=== PATIENT | female | born 1935 | race Caucasian/White ===

== ENCOUNTER 2024-10-26 13:10 | Inpatient (IN) | payer MEDICARE, OTHER ==
[~2024-10-26] VITALS: Ht 144.8 cm; Wt 34.5 kg
[2024-10-26 13:46] LABS: MEAN PLATELET VOLUME 8.0 FL (7.4-10.4); RED CELL DISTRIBUTION WIDTH 19.0 % (11.5-14.5)
--- NOTE | 2024-10-26 13:51 | Physician Documentation ---
History of Present Illness ~ Chief Complaint: Vaginal Bleeding Stated Complaint: VAGINAL BLOOD Time Seen by MD: 13:36 Primary Medical Doctor: Hung TOVAR 89-year-old female with a history of dementia who is nonverbal is brought to the emergency department by her caregiver. Her caregiver knows that she was at [facility] within the last couple of days for a stroke rule out. However, she notes that no CT of the head was done. She has noted bilateral facial droop and decreased responsiveness. She then took the patient to a local urgent care earlier today due to vaginal bleeding in his occurred more than once. Patient does have a history of chronic urinary tract infections on Macrobid chronically. They have not noted any chills or fever. Medication Reconciliation Allergies: Coded Allergies: quetiapine (Unverified Allergy, Unknown, DROWSY, 10/26/24) Uncoded Allergies: BANDAIDS (Allergy, Unknown, 10/26/24) Scheduled Amitriptyline Hcl (Amitriptyline Hcl), 1 TAB PO HS, (Reported) Amlodipine Besylate (Amlodipine Besylate), 1 TAB PO DAILY, (Reported) Doxylamine Succinate (Unisom Sleep Aid), 1 TAB PO HS, (Reported) Famotidine (Famotidine), 1 TAB PO BID, (Reported) Ferrous Sulfate* (Ferrous Sulfate*), 1 TAB PO DAILY, (Reported) Levothyroxine Sodium (Levothyroxine Sodium), 1 TAB PO DAILY, (Reported) Losartan Potassium* (Cozaar*), 100 MG PO DAILY, (Reported) Metoprolol Succinate (Metoprolol Succinate), 1 TAB PO BID, (Reported) Nitrofurantoin/Nitrofuran Mac (Nitrofurantoin Griggs-Mcr 100 Mg), 1 CAP PO DAILY, (Reported) Sertraline HCl (Sertraline HCl), 1 TAB PO DAILY, (Reported) Scheduled PRN Lorazepam (Ativan), 0.5 MG PO PRN PRN for for anxiety/agitation, (Reported) Past Medical History Past Medical History: Hypertension Past Surgical History: hysterectomy, tonsillectomy Alcohol Use: Rarely Drug Use: none Lives with: Family Lives In: Home Occupation: retired Review of Systems ROS As stated above in the HPI, otherwise all systems are reviewed and negative. Physical Exam Vital Signs: Temperature: 100.0, Source: Temporal, Heart Rate: 79, Respiratory Rate: 18, BP: 136/51, Pulse Oximetry: 97, Weight: 34.550 Oxygen Flow Rate: 0 Physical Exam General: Alert, no apparent distress. Neck: Full range of motion. Respiratory: Lungs clear, no respiratory distress. Chest: No accessory muscle use. Cardiovascular: Regular rate and rhythm, 3/6 systolic murmur. Gastrointestinal: Soft, nontender, nondistended. Bowels sounds present. : Bloody discharge noted in patient's adult diaper and around her external labia. Pelvic: Vaginal and urethral atrophy. No cervix. No vaginal lesions or blood in vault. Extremities: Normal range of motion, no deformity. Neurologic: Disoriented but conversant, pleasant, cooperative and follows simple commands. Psychiatric: Normal mood and affect. Skin: Normal color, warm and dry. No edema, no ecchymosis. Progress Results/Orders Results/Orders Orders - ANNA DONAHUE RESOLUTION REP Pelvic Set Up (10/26/24 ) Culture Blood (10/26/24 13:37) Ct Head (10/26/24 14:07) Page Hospitalist (10/26/24 15:22) Completed Orders - ANNA DONAHUE RESOLUTION REP Lacticsepsis (10/26/24 13:37) Procalcitonin (10/26/24 13:37) Ct Head (10/26/24 14:07) Ceftriaxone/N6f-Qrondjon 1gm (Rocephin 1 (10/26/24 14:40) Normal Saline 1000ml (Sodium Chloride 10 (10/26/24 14:40) Medications Received in ER Medications (Trade) Dose Ordered Sig/Yandy Route PRN Reason Start Time Stop Time Status Last Admin Dose Admin Ceftriaxone Sodium 50 ml @ 100 mls/hr ONCE ONCE IV 10/26/24 14:40 10/26/24 15:09 DC 10/26/24 14:59 100 MLS/HR Sodium Chloride 1,000 ml @ 1,000 mls/hr ONCE ONCE IV 10/26/24 14:40 10/26/24 15:39 DC 10/26/24 14:58 1,000 MLS/HR Vital Signs 10/26/24 10/26/24 10/26/24 10/26/24 13:13 13:44 13:44 15:35 Temp 100.0 99.9 Pulse 79 76 82 Resp 18 16 15 12 B/P (MAP) 136/51 141/55 (83) 142/57 (85) Pulse Ox 97 93 94 O2 Flow Rate 0 0 0 Laboratory Tests Test 10/26/24 13:30 10/26/24 13:58 10/26/24 14:45 White Blood Count 11.4 H Red Blood Count 2.34 L Hemoglobin 9.3 L Hematocrit 26.8 L Mean Corpuscular Volume 114.7 H Mean Corpuscular Hemoglobin 39.6 H Mean Corpuscular Hemoglobin Concent 34.5 Red Cell Distribution Width 19.0 H Platelet Count 201 Mean Platelet Volume 8.0 Neutrophils (%) (Auto) 85.0 H Lymphocytes (%) (Auto) 8.6 L Monocytes (%) (Auto) 5.0 Eosinophils (%) (Auto) 1.2 Basophils (%) (Auto) 0.2 Neutrophils # (Auto) 9.7 H Lymphocytes # (Auto) 1.0 L Monocytes # (Auto) 0.6 Eosinophils # (Auto) 0.1 Basophils # (Auto) 0.0 CBC Comment Platelet Estimate Normal Red Blood Cell Morphology Perf Polychromasia Few Basophilic Stippling Anisocytosis 2+ Macrocytosis 2+ Tear Drop Cells Few Elliptocytes Few Sodium Level 135 Potassium Level 3.4 L Chloride Level 103 Carbon Dioxide Level 24.2 Anion Gap 8 Blood Urea Nitrogen 16 Creatinine 0.86 Estimated GFR/1.73 m2 62 BUN/Creatinine Ratio 18.6 Glucose Level 112 H Calcium Level 8.1 L Total Bilirubin 1.7 H Aspartate Amino Transf (AST/SGOT) 16 Alanine Aminotransferase (ALT/SGPT) 17 Alkaline Phosphatase 101 C-Reactive Protein 6.58 H Total Protein 6.1 L Albumin 3.1 L Globulin 3.0 Albumin/Globulin Ratio 1.0 L Lipase 9 L Procalcitonin 0.18 Chemistry Comments Lactic Acid Level 1.1 Urine Specimen Description Straight cath Urine Color Yellow Urine Clarity Cloudy Urine pH 6.0 Urine Specific Egan 1.010 Urine Protein Negative Urine Glucose (UA) Negative Urine Ketones Negative Urine Occult Blood Negative Urine Nitrite Negative Urine Bilirubin Negative Urine Urobilinogen 0.2 Urine Leukocyte Esterase Small H Urine RBC 0-2 Urine WBC 5-10 H Urine WBC Clumps Few Urine Squamous Epithelial Cells Few Urine Amorphous Urates 1+ Urine Bacteria 4+ Urine Culture Indicated Indicated Volume Urine Centrifuged 1 ml Urine Comment Low volume EKG/XRAY/CT/US/VASC/MRI CT : Impression [facility] [address] [facility] [address], [place], [facility] [address] CAT SCAN Patient: JIM SERRATO Medical Record: [id number] [facility] : 1935, Age: 89 Sex: Female Location: ER Patient Status: [facility] ER Service Date/Time: 10/26/241406 Ordering Physician: ANNA DONAHUE NP Exam: CT HEAD CT CT HEAD INDICATION: neuro changes EXAM DATE: 10/26/2024 02:03 PM COMPARISON: None RADIATION DOSE: CTDIvol: 42 mGy, DLP: 707 mGy*cm PROCEDURE: CT scans of the head were obtained from the vertex to the skull base. Sagittal and coronal reconstructions were provided. All CT scans at this medical facility are performed using dose modulation techniques as appropriate to a performed exam including the following: Automated exposure control was utilized; adjustment of the MA and/or KV according to patient size; and use of iterative reconstruction technique. FINDINGS: There is sulcal and ventricular prominence. The brain otherwise shows normal morphology and otero-white matter differentiation, without intracranial hemorrhage, extra-axial fluid collection, mass effect or acute large vessel infarct. The basal cisterns are patent. The skull and visible facial bones are intact. The paranasal sinuses, mastoid air cells and middle ear cavities are well-aerated. The soft tissues of the scalp are unremarkable. IMPRESSION: No acute intracranial abnormality. Electronically Signed by:TERRENCE SAVAGE MD Date & Time: 10/26/24 143 Dictated by: TERRENCE SAVAGE MD Dictation date and time: 10/26/241406 Primary Care Provider: NO PRIMARY CARE PROVIDER cc: ANNA DONAHUE NP ~ Medical Decision Making Additional Comment This is an 89-year-old female with a history of dementia and recent mental status changes who was brought to the emergency department by her caregiver and daughter. They report that she has been less responsive than usual. They have also noted with the think is vaginal bleeding and her adult diaper. However, pelvic exam did not show any lesions or blood in the vaginal vault. Cath urine was obtained. The patient does appear to have a urinary tract infection in his running low-grade fevers, she has elevated white blood cell count, and a markedly elevated CRP. No evidence of sepsis. She was hydrated with a L of normal saline, and was treated with ceftriaxone IV for the urinary tract infection in the ER. The patient would be appropriate for admission, in the hospitalist will be consulted to request that they evaluate her for same. Departure Time of Disposition: 15:50 Disposition: 09 ADMITTED INPATIENT Admitted to Inpatient Unit: yes, to hospitalist Impression: Primary Impression: Altered mental status Additional Impression: Urinary tract infection Referrals: NO PRIMARY CARE PROVIDER (PCP) Signature Scribe Signature: no scribe Attestation: The note accurately reflects work and decisions made by me.Anna Borrero NP 10/26/24 13:51 ANNA DONAHUE NP Oct 26, 2024 13:51
[2024-10-26 14:03] LABS: CREATININE 0.86 MG/DL (0.40-0.90); TOTAL CARBON DIOXIDE 24.2 MMOL/L (24-32); eCRCL 25 ML/MIN; eGFR 62 ML/MIN
--- NOTE | 2024-10-26 14:33 | RADIOLOGY REPORT ---
CT CT HEAD INDICATION: neuro changes EXAM DATE: 10/26/2024 02:03 PM COMPARISON: None RADIATION DOSE: CTDIvol: 42 mGy, DLP: 707 mGy*cm PROCEDURE: CT scans of the head were obtained from the vertex to the skull base. Sagittal and coronal reconstructions were provided. All CT scans at this medical facility are performed using dose modulation techniques as appropriate t o a performed exam including the following: Automated exposure control was utilized; adjustment of th e MA and/or KV according to patient size; and use of iterative reconstruction technique. FINDINGS: There is sulcal and ventricular prominence. The brain otherwise shows normal morphology a nd otero-white matter differentiation, without intracranial hemorrhage, extra-axial fluid collection, mass effect or acute large vessel infarct. The basal cisterns are patent. The skull and visible facia l bones are intact. The paranasal sinuses, mastoid air cells and middle ear cavities are well-aerated . The soft tissues of the scalp are unremarkable. IMPRESSION: No acute intracranial abnormality.
[2024-10-26 14:46] LABS: PLATELET ESTIMATE NORMAL
[2024-10-26 14:47] LABS: ELLIPTOCYTES FEW
[2024-10-26] MEDS: normal saline 1000ml 1,000 ML IV ONE (14:58)
[2024-10-26] MEDS: CefTRIAXone/D5W-Rocephin 1gm 50 ML IV ONE (14:59)
[2024-10-26 15:07] LABS: LEUKOCYTE ESTERASE ,URINE SMALL (Neg); NITRITES, URINE NEGATIVE (Neg); OCCULT BLOOD,URINE NEGATIVE (Neg)
[2024-10-26 15:13] LABS: UA COLLECTION TYPE STRAIGHT CATH
[2024-10-26 15:21] LABS: AMORPHOUS URATES 1+; SQUAMOUS EPITHELIAL CELL,UR FEW /LPF (FEW)
[2024-10-26 15:22] LABS: WBC CLUMPS,URINE FEW /HPF (NEGATIVE)
[2024-10-26] MEDS ORDERED: METO-395 PO (15:34)
[2024-10-26] MEDS ORDERED: LORA-268 PO (15:34)
[2024-10-26] MEDS ORDERED: NITR100C11 PO (15:34)
[2024-10-26] MEDS ORDERED: LEVO50TA8 PO (15:34)
[2024-10-26] MEDS ORDERED: AMIT25TA9 PO (15:34)
[2024-10-26] MEDS ORDERED: LOSA-415 PO (15:34)
[2024-10-26] MEDS ORDERED: AMLO5TAB16 PO (15:34)
[2024-10-26] MEDS ORDERED: FERR325T28 PO (15:34)
[2024-10-26] MEDS ORDERED: SERT-433 PO (15:34)
[2024-10-26] MEDS ORDERED: FAMO20TA8 PO (15:34)
[2024-10-26] MEDS ORDERED: DOXY25TA19 PO (15:34)
--- NOTE | 2024-10-26 15:45 | HISTORY AND PHYSICAL ---
History & Physical Providers to CC ~ chief complaint, vaginal discharge History of Present Illness Reason for Admit\Complaint: As above History of Present Illness This is an 89-year-old female with a history of dementia , and additional multiple medical problems including hypertension over treated, DNR status, history of CVA, GERD, hypothyroidism, depression, anemia hemoglobin 9.3, hypoalbuminemia, gait disorder wheelchair-bound, malnutrition BMI 16, presented today to emergency department chief complaint vaginal discharge, probably bloody in character; in addition patient was is brought to the emergency department by her caregiver. Her caregiver knows that she was at [facility] within the last couple of days for a stroke rule out. However, she notes that no CT of the head was done. She has noted bilateral facial droop and decreased responsiveness. She then took the patient to a local urgent care earlier today due to vaginal bleeding in his occurred more than once. Patient does have a history of chronic urinary tract infections on Macrobid chronically. They have not noted any chills or fever. ER she was evaluated by medical provider, was diagnosed with a fever UTI altered level of consciousness, rule out sepsis, and decision was made to admit patient for further evaluation and treatment, no additional complaint or concern. Allergies: Coded Allergies: quetiapine (Unverified Allergy, Unknown, DROWSY, 10/26/24) Uncoded Allergies: BANDAIDS (Allergy, Unknown, 10/26/24) Active prescriptions I reviewed reconciled Home Medications Home Medications Active Reported Unisom Sleep Aid (Doxylamine Succinate) 25 Mg Tablet 1 Tab PO HS 30 Days Ativan (Lorazepam) 0.5 Mg Tablet 0.5 Mg PO PRN PRN Amitriptyline Hcl 25 Mg Tablet 1 Tab PO HS Nitrofurantoin Sampson-Mcr 100 Mg (Nitrofurantoin/Nitrofuran Mac) 100 Mg Capsule 1 Cap PO DAILY Cozaar* (Losartan Potassium) 25 Mg Tablet 100 Mg PO DAILY 30 Days Metoprolol Succinate 25 Mg Tab.sr.24h 1 Tab PO BID Ferrous Sulfate* (Ferrous Sulfate) 325 Mg Tablet 1 Tab PO DAILY Amlodipine Besylate 5 Mg Tablet 1 Tab PO DAILY Sertraline HCl 50 Mg Tablet 1 Tab PO DAILY Famotidine 20 Mg Tablet 1 Tab PO BID Levothyroxine Sodium 50 Mcg Tablet 1 Tab PO DAILY Past Medical History Past Medical History As in HPI Past Surgical History Surgical History Comment As in HPI Past Social History Social History Comment Patient lives in assisted living facility, good social support, deny illicit drug abuse tobacco alcohol use Health Maintenance Health Maintenance Noncontributory ROS ROS Constitutional : Positive for fever , no chills, or weakness. No diaphoresis. Allergic/Immunologic, no lymphadenopathy, no hives, no skin eruptions. Eyes, no recent visual changes, no eye pain, no photophobia. Ears, nose, mouth, throat, no sore throat, no nosebleed, no ear pain. Cardiovascular, no palpitations, skipped beats, chest pain, no peripheral edema, Respiratory, no dyspnea, orthopnea, cough, hemoptysis, chest wall pain. Gastrointestinal, no abdominal pain, nausea, vomiting, constipation or diarrhea. : no dysuria, hematuria, pelvic pain, urethral d/c. Positive for vaginal discharge Endocrine, no polyuria, polydipsia, recent unintentional weight gain or loss. Hematologic/Lymphatic, no petechiae, no enlarged lymph nodes, no bone pain. Integumentary, no rash, no skin lesions, Musculoskeletal, no muscle aches, or pain, no muscle cramps, no recent change in gait Neurological, no dizziness, no headache, no syncope, no paresthesia. Psychiatric, no delusions, visual hallucinations, or hearing hallucinations. ROS - in rest is as in HPI. Exam Vitals: Vital Signs Date Time Temp Pulse Resp B/P (MAP) Pulse Ox O2 Delivery O2 Flow Rate FiO2 10/26/24 15:35 99.9 82 12 142/57 (85) 94 0 Vital signs, stable ,afebrile. Pulse Oximetry reflects adequate oxygenation. BMI is sixteen, weight 34 kg General: well developed, well nourished. Awake , alert, and oriented x4, resting comfortably in the bed, in no acute distress . Intermittently confused Skin: Warm, dry, no pallor, no rash or petechiae. HEENT: Atraumatic, normocephalic, EOMI, anicteric sclera B; pink conjunctiva; PERRLA, normal oropharynx, moist oral and nasal mucosa. Tympanic membrane , nose , throat clear. Neck: Trachea midline. Supple, full range of motion, no JVD, bruit , hepatojugular reflex , lymphadenopathy or masses, or other lesions Cardiac: Regular rhythm, regular rate no murmurs, rubs, or gallops. Normal S1 and S2, no S3 noticed. PMI is normal. Respiratory: Equal breath sounds bilaterally, no tachypnea; lungs clear to auscultation bilaterally, no wheezing ,rub or rales, or crackles. Chest wall is symmetric and without deformity. No signs of trauma. Chest wall is nontender. No signs of respiratory distress. Resonance is normal upon percussion bilaterally. Gastrointestinal: Abdomen symmetric, non-distended, soft, non-tender, normal bowel sounds x4 quadrant, normoactive, no hepatosplenomegaly , no masses , no bruit, no flank pain bilaterally. No voluntary guarding, rebound, or rigidity. No tenderness to percussion. No pulsatile masses. Equal femoral pulses. No Geller's sign or McBurney point tenderness. Back; no CVA tenderness bilaterally, no deformities. Neck and back are without deformity as well. No tenderness noted on palpation of the spinous processes. Spinous processes are midline. Cervical, thoracic, and lumbar paraspinal muscles are not tender and are without spasm. : normal external genitalia, without lesions, swelling, masses or tenderness. Musculoskeletal: Extremities, normal range of motion, non-tender, muscle strength 5/5 x 4. Negative Homans signs bilaterally on lower extremity. Distal pulses full symmetrical, no clubbing, cyanosis , edema. Neurological: Speech is clear, alert, and oriented x 4. Intermittently confused, No motor or sensory deficit, deep tendon reflexes normal, cerebellar intact. Cranial nerves II-XII intact. Psych: Alert and or appropriate, normal affect. Occasionally confused Vascular: Good distal pulses, which are equal x4; capillary refill less than 2 seconds. Lymphatic, no lymphadenopathy. Diagnostic Data Last Recorded Lab Results: 10/26/24 1330 10/26/24 1330 Advance Care Planning Advanced Care plannin - 30 Minutes Additional Plan Assessment Complicated UTI, rule out sepsis Altered level consciousness Hypovolemia Hypokalemia Dementia hypertension, over treated Anemia hemoglobin 9.3 Gait disorder, wheelchair-bound Malnutrition BMI 60 Additional comorbidities, hypoalbuminemia, depression, hypothyroidism, GERD TIA Plan IV antibiotics, fluids keep patient well hydrated euvolemic Replace electrolytes PT evaluation and treatment Nutrition consult I reconciled home medications DVT gastropathy prophylaxis addressed Sepsis Screening Reassessment Date: Oct 26, 2024 Date of Service: Oct 26, 2024 Billing Provider: DHRUV HUDSON MD Common Visit Codes: 36125-VIZOIBIESS INP/OBS CARE(HIGH) Secondary Visit Codes: 64248-NUSYJIGZ CARE PLAN 30 MINUTES DHRUV HUDSON MD Oct 26, 2024 15:45
[2024-10-26] MEDS ORDERED: ondansetron 4mg rapidly disintigrating tab PO PRN (16:25)
[2024-10-26] MEDS ORDERED: HYDROcodone/acetaminophen 5mg/325mg tablet PO PRN (16:25)
[2024-10-26] MEDS ORDERED: magnesium Cl slow-release 64mg tablet PO PRN (16:25)
[2024-10-26] MEDS ORDERED: bisacodyl 10mg suppository rectal RC PRN (16:25)
[2024-10-26] MEDS ORDERED: mag hydrox/Alum hydrox/simeth 30ml oral suspension PO PRN (16:25)
[2024-10-26] MEDS ORDERED: acetaminophen 650mg rectal suppository RC PRN (16:25)
[2024-10-26] MEDS ORDERED: magnesium sulf-water 2g/50mL 50 ML IV PRN (16:25)
[2024-10-26] MEDS ORDERED: magnesium sulf-water 4G/100mL 100 ML IV PRN (16:25)
[2024-10-26] MEDS ORDERED: potassium Cl 20 mEq SR tablet PO PRN (16:25)
[2024-10-26] MEDS ORDERED: ondansetron/PF 4mg/2ml inj IV PRN (16:25)
[2024-10-26] MEDS ORDERED: magnesium hydroxide 30ml (MOM) UD suspension PO PRN (16:25)
[2024-10-26] MEDS ORDERED: potassium Cl 40MEQ/1/2NS 520ml 520 ML IV PRN (16:25)
[2024-10-26 17:18] LABS: APTT 36 SECONDS (22-32); INR 1.2 INR
[2024-10-26 17:30] LABS: PHOSPHORUS 3.1 MG/DL (2.3-4.5); PRO BRAIN NATRIURETIC PEPTIDE 2214.0 PG/ML (0-450)
[2024-10-26] MEDS: potassium Cl 20mEq in NS 1,000 ML IV SCH (17:34)
--- NOTE | 2024-10-26 17:37 | RADIOLOGY REPORT ---
Indication: abdom-pelvic mass , dist MT Technique: CT axial images of the chest, abdomen and pelvis are obtained with intravenous contrast. Coronal and sagittal reformats were obtained. Radiation Dose Information: CTDI volume is 14.2 mGy. Dose-length product is 926 mGy*cm Comparison: None FINDINGS: The trachea is patent. No pneumothorax. Small right and tiny left pleural effusions. Right lower lobe consolidation/atelectasis. Right middle lobe atelectasis. Left lower lobe atelectasis/developing con solidation. Heart normal in size. Aortic atherosclerotic disease. Left thyroid nodule measuring 1.8 cm. No supra clavicular, axillary lymphadenopathy. Adrenal glands, spleen unremarkable in shape. Pancreas unremarkable in shape. Large gallbladder hyper density measuring 5.4 x 3.6 cm. Liver unremarkable in shape. Bilateral renal peripelvic cysts. No hydronephrosis/ nephrolithiasis. Small to moderate hiatal hernia. Small bowel loops are normal in caliber. Bowel wall thickening with surrounding stranding of the rectosigmoid colon. Moderate volume stool thr oughout the colon. No secondary signs for appendicitis. Abdominal aortic atherosclerotic disease. Bladder is partially distended. No free pelvic fluid. No in guinal lymphadenopathy. Old right superior/ inferior pubic rami fractures. Rwwi-cj-vhiyquwz bilateral sacroiliac degenerative joint disease. Bilateral acromiale. Old anterior right rib fractures. Old right femoral head / neck fracture deformi ty. Moderate to severe thoracolumbar degenerative disc disease. Old L4 compression deformity with 30% loss height. Old T12 compression deformity with 90% loss height. Old L1 compression deformity with 30% loss height. IMPRESSION: Bowel wall thickening with surrounding stranding of the rectosigmoid colon. Differential consideratio ns include colitis, inflammatory bowel disease. Large gallbladder hyperdensity measuring 5.4 x 3.6 cm. Recommend MRI abdomen with and without contra st to evaluate for cholelithiasis versus gallbladder mass / neoplasm versus sludge. Small to moderate hiatal hernia. Bilateral pulmonary lower lobe consolidation/atelectasis. Small right and tiny left pleural effusions . Atherosclerotic disease. Other findings as described.
[2024-10-26 19:00] VITALS: RESP 15; O2SAT 94
[2024-10-26 19:10] VITALS: BP 122/59; PULSE 83; RESP 15; TEMP 98; O2SAT 94
[2024-10-26] MEDS: K and/or MAG REPLACEMENT MC SCH (20:00)
[2024-10-26] MEDS: docusate sod 100mg capsule PO SCH (20:00)
[2024-10-26 22:00] VITALS: BP 128/54; PULSE 80; RESP 20; TEMP 98.2; O2SAT 93
[2024-10-27] VITALS (7 sets, daily range): BP systolic 136–164; BP diastolic 56–63; PULSE 80–92; RESP 14–20; TEMP 98.1–98.9; O2SAT 93–97
[2024-10-27 04:53] LABS: MEAN PLATELET VOLUME 7.9 FL (7.4-10.4); RED CELL DISTRIBUTION WIDTH 18.9 % (11.5-14.5)
[2024-10-27 05:18] LABS: CHOL/HDL RATIO 2.3 (0.00-4.99); CREATININE 0.73 MG/DL (0.40-0.90); LDL CHOLESTEROL 51 MG/DL (50-100); TOTAL CARBON DIOXIDE 23.1 MMOL/L (24-32); eCRCL 29 ML/MIN; eGFR 75 ML/MIN
[2024-10-27 07:51] LABS: PLATELET ESTIMATE NORMAL
[2024-10-27] MEDS: CefTRIAXone/D5W-Rocephin 1gm 50 ML IV SCH (08:13)
[2024-10-27] MEDS: potassium Cl 20 mEq SR tablet PO PRN (08:13)
[2024-10-27] MEDS ORDERED: ipratropium/albuterol 3ml nebule NEB PRN (10:05)
--- NOTE | 2024-10-27 18:19 | RADIOLOGY REPORT ---
[id number] MR MRI ABDOMEN COMPARISON: CT 10/26/2024 INDICATION: pain; biliary mass.. TECHNIQUE: MRI abdomen was performed with intravenous contrast. FINDINGS: Evaluation is extremely limited due to motion artifact. Visualized lower thorax: Trace bilateral pleural effusions. Liver: Normal and liver morphology and signal intensity. Gallbladder: Gallstones. Biliary system: There is no intrahepatic or extrahepatic bile duct dilatation. Spleen: Normal in morphology and signal intensity. Pancreas: Normal in morphology and signal intensity. Adrenal glands: Normal in morphology and signal intensity. Kidneys: The kidneys are symmetric in size. Bilateral renal cysts are visualized. No hydronephrosis. GI tract: Wall thickening of the rectosigmoid colon is partially visualized on coronal view. Peritoneum: No ascites. Lymph nodes: No enlarged lymph nodes. Vascular: Normal caliber of the abdominal aorta. Musculoskeletal: The bone marrow signal intensity is within normal limits. IMPRESSION: Evaluation is extremely limited due to motion artifact. Gallstones gallbladder sludge. No obvious gal lbladder mass within limitations of the exam. No intra or extrahepatic biliary ductal dilatation. Wa ll thickening of the rectosigmoid colon is partially visualized on coronal view.
--- NOTE | 2024-10-27 18:41 | PROGRESS NOTE ---
Daily Progress Note Providers to CC Feels better today, better appetite better sleep ~ Central Line/PICC still needed: No Perez-Non Protocol Perez Indications Met/Not Met: F/C Indications Not Met Antibiotic Timeout Antibiotic Ordered?: Yes MRSA Education MRSA Education Provided to pt: Yes Subjective As above Objective Vital Signs Date Time Temp Pulse Resp B/P (MAP) Pulse Ox O2 Delivery O2 Flow Rate FiO2 10/27/24 11:57 98.9 80 16 142/61 (88) 96 Room Air 10/27/24 11:35 0 21 Vital signs, stable ,afebrile. Pulse Oximetry reflects adequate oxygenation. General: well developed, well nourished. Awake , alert, and oriented x4, resting comfortably in the bed, in no acute distress . Skin: Warm, dry, no pallor, no rash or petechiae. HEENT: Atraumatic, normocephalic, EOMI, anicteric sclera B; pink conjunctiva; PERRLA, normal oropharynx, moist oral and nasal mucosa. Tympanic membrane , nose , throat clear. Neck: Trachea midline. Supple, full range of motion, no JVD, bruit , hepatojugular reflex , lymphadenopathy or masses, or other lesions Cardiac: Regular rhythm, regular rate no murmurs, rubs, or gallops. Normal S1 and S2, no S3 noticed. PMI is normal. Respiratory: Equal breath sounds bilaterally, no tachypnea; lungs clear to auscultation bilaterally, no wheezing ,rub or rales, or crackles. Chest wall is symmetric and without deformity. No signs of trauma. Chest wall is nontender. No signs of respiratory distress. Resonance is normal upon percussion bilaterally. Gastrointestinal: Abdomen symmetric, non-distended, soft, non-tender, normal bowel sounds x4 quadrant, normoactive, no hepatosplenomegaly , no masses , no bruit, no flank pain bilaterally. No voluntary guarding, rebound, or rigidity. No tenderness to percussion. No pulsatile masses. Equal femoral pulses. No Geller's sign or McBurney point tenderness. Back; no CVA tenderness bilaterally, no deformities. Neck and back are without deformity as well. No tenderness noted on palpation of the spinous processes. Spinous processes are midline. Cervical, thoracic, and lumbar paraspinal muscles are not tender and are without spasm. Musculoskeletal: Extremities, normal range of motion, non-tender, muscle strength 5/5 x 4. Negative Homans signs bilaterally on lower extremity. Distal pulses full symmetrical, no clubbing, cyanosis , edema. Neurological: Speech is clear, alert, and oriented x 4. No motor or sensory deficit, deep tendon reflexes normal, cerebellar intact. Cranial nerves II-XII intact. Psych: Alert and or appropriate, normal affect. Vascular: Good distal pulses, which are equal x4; capillary refill less than 2 seconds. Lymphatic, no lymphadenopathy. 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
[2024-10-27] MEDS: metoprolol succinate 25mg (24-HOUR) SR. Tablet PO SCH (20:52)
[2024-10-28 05:41] LABS: MEAN PLATELET VOLUME 7.5 FL (7.4-10.4); RED CELL DISTRIBUTION WIDTH 18.6 % (11.5-14.5)
[2024-10-28 06:05] LABS: CREATININE 0.56 MG/DL (0.40-0.90); TOTAL CARBON DIOXIDE 21.9 MMOL/L (24-32); eCRCL 38 ML/MIN; eGFR > 90 ML/MIN
[2024-10-28 06:48] VITALS: BP 134/51; PULSE 85; RESP 16; TEMP 98.6; O2SAT 98
[2024-10-28 08:00] VITALS: RESP 16
[2024-10-28] MEDS: levoTHYROXINE 25mcg tablet PO SCH (09:21)
[2024-10-28 10:00] VITALS: BP 149/97; PULSE 85; RESP 15; TEMP 97.8; O2SAT 96
--- NOTE | 2024-10-28 11:32 | PROGRESS NOTE ---
Daily Progress Note Providers to CC ~ no new complaint today, tolerated medication fine Central Line/PICC still needed: No Perez-Non Protocol Perez Indications Met/Not Met: F/C Indications Not Met Antibiotic Timeout Antibiotic Ordered?: Yes MRSA Education MRSA Education Provided to pt: Yes Subjective MRI of the abdomen completed Objective Vital Signs Date Time Temp Pulse Resp B/P (MAP) Pulse Ox O2 Delivery O2 Flow Rate FiO2 10/28/24 09:21 78 10/28/24 08:00 16 Room Air 10/28/24 06:48 98.6 134/51 (78) 98 10/27/24 22:00 0 21 Vital signs, stable ,afebrile. Pulse Oximetry reflects adequate oxygenation. General: well developed, well nourished. Awake , alert, and oriented x4, resting comfortably in the bed, in no acute distress . Skin: Warm, dry, no pallor, no rash or petechiae. HEENT: Atraumatic, normocephalic, EOMI, anicteric sclera B; pink conjunctiva; PERRLA, normal oropharynx, moist oral and nasal mucosa. Tympanic membrane , nose , throat clear. Neck: Trachea midline. Supple, full range of motion, no JVD, bruit , hepatojugular reflex , lymphadenopathy or masses, or other lesions Cardiac: Regular rhythm, regular rate no murmurs, rubs, or gallops. Normal S1 and S2, no S3 noticed. PMI is normal. Respiratory: Equal breath sounds bilaterally, no tachypnea; lungs clear to auscultation bilaterally, no wheezing ,rub or rales, or crackles. Chest wall is symmetric and without deformity. No signs of trauma. Chest wall is nontender. No signs of respiratory distress. Resonance is normal upon percussion bilaterally. Gastrointestinal: Abdomen symmetric, non-distended, soft, non-tender, normal bowel sounds x4 quadrant, normoactive, no hepatosplenomegaly , no masses , no bruit, no flank pain bilaterally. No voluntary guarding, rebound, or rigidity. No tenderness to percussion. No pulsatile masses. Equal femoral pulses. No Geller's sign or McBurney point tenderness. Back; no CVA tenderness bilaterally, no deformities. Neck and back are without deformity as well. No tenderness noted on palpation of the spinous processes. Spinous processes are midline. Cervical, thoracic, and lumbar paraspinal muscles are not tender and are without spasm. Musculoskeletal: Extremities, normal range of motion, non-tender, muscle strength 5/5 x 4. Negative Homans signs bilaterally on lower extremity. Distal pulses full symmetrical, no clubbing, cyanosis , edema. Neurological: Speech is clear, alert, and oriented x 4. No motor or sensory deficit, deep tendon reflexes normal, cerebellar intact. Cranial nerves II-XII intact. Psych: Alert and or appropriate, normal affect. Vascular: Good distal pulses, which are equal x4; capillary refill less than 2 seconds. Lymphatic, no lymphadenopathy. 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
[2024-10-28] MEDS ORDERED: diazepam inj 5 MG/ML inj. IV PRN (14:25)
[2024-10-28 18:00] VITALS: BP 178/71; PULSE 85; RESP 16; TEMP 99; O2SAT 96
--- NOTE | 2024-10-28 20:30 | RADIOLOGY REPORT ---
ABDOMINAL ULTRASOUND CLINICAL HISTORY: cholecystitis TECHNIQUE: Multiple grayscale and color Doppler ultrasound images were obtained of the abdomen. WID: COMPARISON: MR MRI ABDOMEN on DOS: 10/27/24 FINDINGS: Liver and Biliary System: Homogeneous echotexture, normal size measuring 12.24 cm. Mild nodular con tour of the liver. No focal hepatic observations. No intrahepatic bile duct dilatation. The common d uct measures 0.2 cm at the ayan hepatis. The gallbladder contains cholelithiasis and sludge. Leon rderline gallbladder wall thickening measuring 3.4 mm , small amount of fluid adjacent to the gallbla dder. Pancreas: Not well seen due To overlying bowel gas Spleen: is within normal limits. Kidneys: The right kidney is 8.9 x 3.8 by 4.3 cm. No hydronephrosis, increased echogenicity, shadow ing stone, or focal lesion. IMPRESSION: The gallbladder appears normal-size with borderline wall thickening and cholelithiasis and gallbladde r sludge.
[2024-10-28 22:00] VITALS: BP 117/52; PULSE 78; RESP 16; TEMP 98; O2SAT 96
[2024-10-29] VITALS (7 sets, daily range): BP systolic 100–118; BP diastolic 39–52; PULSE 66–96; RESP 16–18; TEMP 97.2–97.9; O2SAT 95–98
[2024-10-29 05:37] LABS: MEAN PLATELET VOLUME 7.9 FL (7.4-10.4); RED CELL DISTRIBUTION WIDTH 18.7 % (11.5-14.5)
[2024-10-29 06:00] LABS: CREATININE 0.95 MG/DL (0.40-0.90); TOTAL CARBON DIOXIDE 23.7 MMOL/L (24-32); eCRCL 22 ML/MIN; eGFR 56 ML/MIN
[2024-10-29 06:05] LABS: PLATELET ESTIMATE NORMAL
[2024-10-29 12:34] LABS: OCCULT BLOOD STOOL NEGATIVE (Neg)
--- NOTE | 2024-10-29 17:58 | PROGRESS NOTE ---
Daily Progress Note Providers to CC Complaint, had an episode of confusion, associated with agitation today ~ Central Line/PICC still needed: No Perez-Non Protocol Perez Indications Met/Not Met: F/C Indications Not Met Antibiotic Timeout Antibiotic Ordered?: Yes MRSA Education MRSA Education Provided to pt: Yes Subjective As above Objective Vital Signs Date Time Temp Pulse Resp B/P (MAP) Pulse Ox O2 Delivery O2 Flow Rate FiO2 10/29/24 16:10 72 16 98 Room Air* 0 21 10/29/24 10:00 97.2 109/49 (69) Vital signs, stable ,afebrile. Pulse Oximetry reflects adequate oxygenation. General: well developed, well nourished. Awake , alert, and oriented x4, resting comfortably in the bed, in no acute distress . Skin: Warm, dry, no pallor, no rash or petechiae. HEENT: Atraumatic, normocephalic, EOMI, anicteric sclera B; pink conjunctiva; PERRLA, normal oropharynx, moist oral and nasal mucosa. Tympanic membrane , nose , throat clear. Neck: Trachea midline. Supple, full range of motion, no JVD, bruit , hepatojugular reflex , lymphadenopathy or masses, or other lesions Cardiac: Regular rhythm, regular rate no murmurs, rubs, or gallops. Normal S1 and S2, no S3 noticed. PMI is normal. Respiratory: Equal breath sounds bilaterally, no tachypnea; lungs clear to auscultation bilaterally, no wheezing ,rub or rales, or crackles. Chest wall is symmetric and without deformity. No signs of trauma. Chest wall is nontender. No signs of respiratory distress. Resonance is normal upon percussion bilaterally. Gastrointestinal: Abdomen symmetric, non-distended, soft, non-tender, normal bowel sounds x4 quadrant, normoactive, no hepatosplenomegaly , no masses , no bruit, no flank pain bilaterally. No voluntary guarding, rebound, or rigidity. No tenderness to percussion. No pulsatile masses. Equal femoral pulses. No Geller's sign or McBurney point tenderness. Back; no CVA tenderness bilaterally, no deformities. Neck and back are without deformity as well. No tenderness noted on palpation of the spinous processes. Spinous processes are midline. Cervical, thoracic, and lumbar paraspinal muscles are not tender and are without spasm. Musculoskeletal: Extremities, normal range of motion, non-tender, muscle strength 5/5 x 4. Negative Homans signs bilaterally on lower extremity. Distal pulses full symmetrical, no clubbing, cyanosis , edema. Neurological: Speech is clear, alert, and oriented x 4. No motor or sensory deficit, deep tendon reflexes normal, cerebellar intact. Cranial nerves II-XII intact. Psych: Alert and or appropriate, normal affect. Vascular: Good distal pulses, which are equal x4; capillary refill less than 2 seconds. Lymphatic, no lymphadenopathy. 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
[2024-10-30 05:19] LABS: MEAN PLATELET VOLUME 7.7 FL (7.4-10.4); RED CELL DISTRIBUTION WIDTH 19.1 % (11.5-14.5)
[2024-10-30 05:36] LABS: CREATININE 1.33 MG/DL (0.40-0.90); TOTAL CARBON DIOXIDE 21.9 MMOL/L (24-32); eCRCL 16 ML/MIN; eGFR 38 ML/MIN
[2024-10-30 06:00] VITALS: BP 106/62; PULSE 77; RESP 17; TEMP 98; O2SAT 97
[2024-10-30 13:16] VITALS: PULSE 75; RESP 18; O2SAT 96
[2024-10-30 14:00] VITALS: BP 105/75; PULSE 77; RESP 16; TEMP 97.3; O2SAT 96
[2024-10-30 18:00] VITALS: BP 129/38; PULSE 63; RESP 16; TEMP 97.4; O2SAT 97
--- NOTE | 2024-10-30 20:58 | PROGRESS NOTE ---
Daily Progress Note Providers to CC ~ Antibiotic Timeout Antibiotic Ordered?: Yes Subjective Patient was seen in presence of patient's daughter patient cooperated very well denied any symptoms she is treated for UTI. Kidney function low as compared to yesterday's lab. Patient is started on IV fluids we will avoid amitriptyline which can cause urinary retention for the patient Objective Vital Signs Date Time Temp Pulse Resp B/P (MAP) Pulse Ox O2 Delivery O2 Flow Rate FiO2 10/30/24 14:00 97.3 77 16 105/75 (85) 96 Room Air 10/30/24 13:16 0 21 Result Diagram: 10/30/24 0435 10/30/24 0435 General-patient not in any acute distress, alert awake chronically ill-appearing/age-appropriate, looks comfortable HEENT-atraumatic normocephalic, neck supple without elevated JVD, no thyromegaly or carotid bruit. No lymphadenopathy bilaterally. Eyes-no icterus or pallor seen in eyes Chest-clear to auscultation bilaterally, breathing nonlabored no tachypnea, no wheezing, no crepitation, no crackles. Heart-S1-S2 normal, regular heart rate no murmur Abdomen bowel sounds positive on auscultation, soft nondistended nontender no guarding, no rigidity Skin no active skin rash Neurology-grossly intact, nonfocal alert awake , signs of mild dementia present able to follow verbal commands , cooperated during physical examination Extremity- no pedal edema able to move all 4 extremities Coagulation Studies Laboratory Tests Test 10/26/24 13:30 Prothrombin Time 11.7 SECONDS (9.0-12.0) INR International Normalized Ratio 1.2 INR Activated Partial Thromboplast Time 36 SECONDS (22-32) H Coagulation Comments Problem\Assessment\Plan Symptomatic UTI, V antibiotics, fluids keep patient well hydrated euvolemic Altered level consciousness, Dementia Hypovolemia-resolved Hypokalemia- resolved Chronic Calculous cholecystitis Rectosigmoid colitis- treated with IV antibiotics hypertension,-stable. 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 Patient's current all updated labs diagnostic workup and updated medical condition discussed with patient's daughter in visit. All questions and concerns answered to the best of my professional medical knowledge. Date of Service: Oct 30, 2024 Billing Provider: ZEINAB SPANN MD Common Visit Codes: [id number] INP/OBS CARE(HIGH) ZEINAB SPANN MD Oct 30, 2024 20:58
[2024-10-30 21:40] VITALS: BP 123/46; PULSE 66; RESP 16; TEMP 98.1; O2SAT 96
[2024-10-31 04:18] LABS: MEAN PLATELET VOLUME 7.5 FL (7.4-10.4); RED CELL DISTRIBUTION WIDTH 18.7 % (11.5-14.5)
[2024-10-31 04:33] LABS: CREATININE 0.94 MG/DL (0.40-0.90); TOTAL CARBON DIOXIDE 22.1 MMOL/L (24-32); eCRCL 23 ML/MIN; eGFR 56 ML/MIN
[2024-10-31 05:00] VITALS: BP 139/52; PULSE 60; RESP 16; TEMP 97.8; O2SAT 93
[2024-10-31 10:00] VITALS: BP 128/43; PULSE 62; RESP 17; TEMP 97.8; O2SAT 97
--- NOTE | 2024-10-31 17:02 | DISCHARGE SUMMARY ---
Discharge Summary Providers to CC ~ Discharge Summary Admission Diagnosis: UTI Hospital Course DATE OF ADMISSION: October 26, 2024 DATE OF DISCHARGE: October 31, 2024 CBC testing done on October 31, 2024 WBC 3.7 hemoglobin 7.9 hematocrit 22.8 platelet count 219. Serum chemistry done on October 31, 2024 sodium 137 potassium 4.2 creatinine 0.94 GFR 56. Normal liver enzymes. Procalcitonin 0.18. Urine culture showing E coli patient already treated with IV antibiotics for UTI. 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, wheelchair-bound Malnutrition BMI 16 Additional comorbidities, hypoalbuminemia, depression, hypothyroidism, GERD TIA Operations\\Procedures: none Consultants: none Complications: none Condition on DC: Stable Continued Medications: Amlodipine Besylate (Amlodipine Besylate) 5 Mg Tablet 1 TAB PO DAILY Doxylamine Succinate (Unisom Sleep Aid) 25 Mg Tablet 1 TAB PO HS for 30 Days, #30 TAB 0 Refills Famotidine (Famotidine) 20 Mg Tablet 1 TAB PO BID Ferrous Sulfate* (Ferrous Sulfate*) 325 Mg Tablet 1 TAB PO DAILY, TAB Levothyroxine Sodium (Levothyroxine Sodium) 50 Mcg Tablet 1 TAB PO DAILY Lorazepam (Ativan) 0.5 Mg Tablet 0.5 MG PO PRN PRN for for anxiety/agitation Losartan Potassium* (Cozaar*) 25 Mg Tablet 100 MG PO DAILY for 30 Days, #30 TAB Metoprolol Succinate (Metoprolol Succinate) 25 Mg Tab.sr.24h 1 TAB PO BID Nitrofurantoin/Nitrofuran Mac (Nitrofurantoin [place]-Mcr 100 Mg) 100 Mg Capsule 1 CAP PO DAILY Sertraline HCl (Sertraline HCl) 50 Mg Tablet 1 TAB PO DAILY Discontinued Medications: Amitriptyline Hcl (Amitriptyline Hcl) 25 Mg Tablet 1 TAB PO HS Discharge Summary: As per admitting provider's history and physical note'This is an 89-year-old female with a history of dementia , and additional multiple medical problems including hypertension over treated, DNR status, history of CVA, GERD, hypothyroidism, depression, anemia hemoglobin 9.3, hypoalbuminemia, gait disorder wheelchair-bound, malnutrition BMI 16, presented today to emergency department chief complaint vaginal discharge, probably bloody in character; in addition patient was is brought to the emergency department by her caregiver. Her caregiver knows that she was at [facility] within the last couple of days for a stroke rule out. However, she notes that no CT of the head was done. She has noted bilateral facial droop and decreased responsiveness. She then took the patient to a local urgent care earlier today due to vaginal bleeding in his occurred more than once. Patient does have a history of chronic urinary tract infections on Macrobid chronically. They have not noted any chills or fever. 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 She is clinically improved has been afebrile getting discharged home in stable condition. Patient is seen and examined on the day of discharge discharge instructions provided to the patient. PLEASE DISCUSS SIDE EFFECTS OF UNISOM SLEEP AID AND AMITRIPTYLINE WITH THE PRIMARY CARE DOCTOR. INCREASE ORAL FLUID MORE THAN 1000 ML PER DAY. PROVIDE FALL PRECAUTION DOCUMENT. REPEAT CBC BMP SED RATE PROCALCITONIN WITH PCP AFTER SEVEN DAYS General-patient not in any acute distress, alert awake chronically ill-appearing/age-appropriate, looks comfortable HEENT-atraumatic normocephalic, neck supple without elevated JVD, no thyromegaly or carotid bruit. No lymphadenopathy bilaterally. Eyes-no icterus or pallor seen in eyes Chest-clear to auscultation bilaterally, breathing nonlabored no tachypnea, no wheezing, no crepitation, no crackles. Heart-S1-S2 normal, regular heart rate no murmur Abdomen bowel sounds positive on auscultation, soft nondistended nontender no guarding, no rigidity Skin no active skin rash Neurology-grossly intact, nonfocal alert awake , signs of mild dementia present able to follow verbal commands , cooperated during physical examination Extremity- no pedal edema able to move all 4 extremities *Problems/Diagnosis: (1) Urinary tract infection Status: Acute (2) Hypokalemia Status: Acute Total Time Spent on D/C: > 30 Minutes Date of Service: Oct 31, 2024 Billing Provider: ZEINAB SPANN MD Common Visit Codes: [id number]/OBS DISCH DAY >30min ZEINAB SPANN MD Oct 31, 2024 16:57
== END 2024-10-31 12:55 | disposition home health service (06) | DRG 70 ==
LOC: ER 13:11 → ED HOLD 16:32 → SUR 3N 19:00
PROVIDERS: ADMIT Family Medicine; ATTEND Family Medicine
PROC: BW211ZZ Computerized Tomography (CT Scan) of Abdomen and Pelvis using Low Osmolar Contrast (ICD-10-PCS; principal; 2024-10-26)
DX: G93.41 Metabolic encephalopathy (principal); N17.0 Acute kidney failure with tubular necrosis; N39.0 Urinary tract infection, site not specified; Z68.1 Body mass index [BMI] 19.9 or less, adult; K80.10 Calculus of gallbladder with chronic cholecystitis without obstruction; F03.93 Unspecified dementia, unspecified severity, with mood disturbance; E44.0 Moderate protein-calorie malnutrition; K52.9 Noninfective gastroenteritis and colitis, unspecified; Z66 Do not resuscitate; E88.09 Other disorders of plasma-protein metabolism, not elsewhere classified; E86.1 Hypovolemia; E03.9 Hypothyroidism, unspecified; D64.9 Anemia, unspecified; N93.9 Abnormal uterine and vaginal bleeding, unspecified; E87.6 Hypokalemia; F32.A Depression, unspecified; I10 Essential (primary) hypertension; K21.9 Gastro-esophageal reflux disease without esophagitis; Z90.710 Acquired absence of both cervix and uterus; Z99.3 Dependence on wheelchair; Z88.8 Allergy status to other drugs, medicaments and biological substances; Z79.899 Other long term (current) drug therapy
CPT/HCPCS: 36415; 70450; 71250; 74176; 74181; 76700; 80053; 80061; 81001; 82272; 83036; 83605; 83690; 83735; 83880; 84100; 84145; 84443; 84484; 85008; 85025; 85610; 85730; 86140; 87040; 87077; 87081; 87088; 87186; 94760; 96365; 96367; 97161; 97530; 99285; A4353; A6213; A6258; C1758; G0378; J0696; J3480; J7030; J7040

== ENCOUNTER 2025-04-05 19:33 | Emergency (ER) | payer MEDICARE, OTHER ==
[~2025-04-05] VITALS: Ht 152.4 cm; Wt 47.0 kg
[~2025-04-05 19:33] MED LIST: AMLO5TAB16 PO; DOXY25TA19 PO; FAMO20TA8 PO; FERR325T28 PO; LEVO50TA8 PO; LORA-268 PO; LOSA-415 PO; METO-395 PO; NITR100C11 PO; SERT-433 PO
--- NOTE | 2025-04-05 20:51 | Physician Documentation ---
History of Present Illness ~ Chief Complaint: Chest Pain Stated Complaint: CHEST PAIN/SOB Time Seen by MD: 19:56 Primary Medical Doctor: Hung TOVAR 89 yo F presenting with an episode of chest pain At approximately 6:30 p.m., the patient had an episode of chest pain that lasted about 30 minutes. The patient is a limited historian due to her dementia. She has a hard time describing the pain or other related symptoms. She denies any chest pain currently Family later states that the pain started after she was eating. They deny any history of heart problems in the past. No other acute concerns Medication Reconciliation Allergies: Coded Allergies: quetiapine (Unverified Allergy, Unknown, DROWSY, 10/26/24) Uncoded Allergies: BANDAIDS (Allergy, Unknown, 10/26/24) Scheduled Amlodipine Besylate (Amlodipine Besylate), 1 TAB PO DAILY, (Reported) Doxylamine Succinate (Unisom Sleep Aid), 1 TAB PO HS, (Reported) Famotidine (Famotidine), 1 TAB PO BID, (Reported) Ferrous Sulfate* (Ferrous Sulfate*), 1 TAB PO DAILY, (Reported) Levothyroxine Sodium (Levothyroxine Sodium), 1 TAB PO DAILY, (Reported) Losartan Potassium* (Cozaar*), 100 MG PO DAILY, (Reported) Metoprolol Succinate (Metoprolol Succinate), 1 TAB PO BID, (Reported) Nitrofurantoin/Nitrofuran Mac (Nitrofurantoin [place]-Mcr 100 Mg), 1 CAP PO DAILY, (Reported) Sertraline HCl (Sertraline HCl), 1 TAB PO DAILY, (Reported) Scheduled PRN Lorazepam (Ativan), 0.5 MG PO PRN PRN for for anxiety/agitation, (Reported) Past Medical History Past Medical History: Hypertension Past Surgical History: hysterectomy, tonsillectomy Alcohol Use: Rarely Drug Use: none Lives with: Family Lives In: Home Occupation: retired Review of Systems Constitutional: Denies: fever Cardiovascular: Reports: chest pain Unable to obtain complete ROS: dementia Physical Exam Vital Signs: Temperature: 98.9, Source: Oral, Heart Rate: 74, Respiratory Rate: 16, BP: 179/82, Pulse Oximetry: 97, Weight: 47.000 Oxygen Flow Rate: 0 Physical Exam General: This is a pleasant elderly woman, sitting calmly in bed HEENT: Atraumatic, oropharynx is moist Heart: Regular rate and rhythm, soft murmur present, normal-appearing peripheral perfusion Lungs: Clear breath sounds bilateral, normal work of breathing, normal oxygen saturation on room air Abdomen: Soft, nondistended, nontender including in the epigastric region Extremities: Warm and well-perfused Neuro: Alert, has trouble with some history questions Psychiatric: Calm and cooperative with exam Progress Results/Orders Results/Orders Orders - SAHIL GROVER MD Chest,Single View (04/05/25 20:35) Monitor (04/05/25 20:35) Saline Lock (04/05/25 20:35) Oxygen (04/05/25 20:35) Electrocardiogram (04/05/25 20:35) Hs Troponin I W Calculations (04/05/25 23:35) Completed Orders - SAHIL GROVER MD Chest,Single View (04/05/25 20:35) Cbc/Diff (04/05/25 20:35) BMP (04/05/25 20:35) PBNP (04/05/25 20:35) Hs Troponin I W Calculations (04/05/25 20:35) Hs Troponin I W Calculations (04/05/25 22:35) Vital Signs 04/05/25 04/05/25 04/05/25 04/05/25 19:51 20:00 21:17 22:13 Temp 98.9 98.9 98.9 Pulse 74 71 72 Resp 16 10 15 B/P (MAP) 179/82 162/61 (94) 145/65 (91) Pulse Ox 97 97 95 O2 Flow Rate 0 0 0 04/05/25 23:10 Temp 98.9 Pulse 69 Resp 14 B/P (MAP) 152/56 Pulse Ox 94 Laboratory Tests Test 04/05/25 20:43 04/05/25 22:29 White Blood Count 5.5 Red Blood Count 2.85 L Hemoglobin 10.9 L Hematocrit 31.9 L Mean Corpuscular Volume 112.1 H Mean Corpuscular Hemoglobin 38.2 H Mean Corpuscular Hemoglobin Concent 34.1 Red Cell Distribution Width 16.1 H Platelet Count 218 Mean Platelet Volume 7.4 Neutrophils (%) (Auto) 76.2 H Lymphocytes (%) (Auto) 16.2 L Monocytes (%) (Auto) 5.2 Eosinophils (%) (Auto) 1.9 Basophils (%) (Auto) 0.5 Neutrophils # (Auto) 4.2 Lymphocytes # (Auto) 0.9 L Monocytes # (Auto) 0.3 Eosinophils # (Auto) 0.1 Basophils # (Auto) 0.0 CBC Comment Platelet Estimate Normal Red Blood Cell Morphology Perf Basophilic Stippling Anisocytosis 1+ Macrocytosis 2+ Sodium Level 140 Potassium Level 3.6 Chloride Level 107 Carbon Dioxide Level 25.6 Anion Gap 7 L Blood Urea Nitrogen 21 H Creatinine 0.74 Estimated GFR/1.73 m2 74 BUN/Creatinine Ratio 28.4 H Glucose Level 131 H Calcium Level 8.6 Troponin I High Sensitivity 15 17 Pro-B-Type Natriuretic Peptide 1603 H Albumin 3.6 Chemistry Comments Troponin I High Sens Percent Delta 13 Troponin I Hi Sens Absolute Change 2 EKG/XRAY/CT/US/VASC/MRI EKG : Additional Comment I personally interpreted the EKG and this shows: Sinus rhythm, rate 70, QTC slightly prolonged at 5:14 a.m., possible mild ST depression in the lateral leads, no STEMI Chest X-Ray : Additional Comments I personally interpreted the x-ray, and it shows: Elevated hemidiaphragm, no focal consolidation, no pulmonary edema Heart Score: Heart Score Response (Comments) Value History Moderate Suspicious 1 EKG Repolarization Disturb 1 Age >65 2 Risk Factors >3 or Hx ASHD 2 Troponin Normal limit 0 Total 6 Medical Decision Making Additional information obtaine: family Findings Further history obtained from the family Heart Score: 6 Differential Dx:Considerations: Include: angina, aortic dissection, chest wall pain, cholelithiasis, CHF, costochondritis, gastritis, myocardial infarction, pulmonary embolus Additional Information The patient presents with an episode of chest pain. She is a limited historian due to her dementia. By time of my evaluation she is asymptomatic. Her workup was unrevealing, including no evidence of ACS. I had a long discussion with the patient and her family regarding the meaning of these tests. Given her lack of symptoms, it seems reasonable for her to be discharged home. If she continues to have other chest pain episodes or other concerns, she will return for re- evaluation. Otherwise she will follow up with the primary care doctor to discuss whether she needs further heart testing given her age and other medical conditions. Departure Disposition: HOME / SELF CARE / HOMELESS Impression: Primary Impression: Chest pain Condition: Stable Discharge Instructions: Nonspecific Chest Pain, Adult Referrals: NO PRIMARY CARE PROVIDER (PCP) Education Educated: Patient, Family Educated regarding: diagnosis, treatment, need for follow up Signature Scribe Signature: na Attestation: SAHIL Rodriguez MD Apr 05, 2025 20:51
[2025-04-05 20:53] LABS: MEAN PLATELET VOLUME 7.4 FL (7.4-10.4); RED CELL DISTRIBUTION WIDTH 16.1 % (11.5-14.5)
[2025-04-05 21:10] LABS: PLATELET ESTIMATE NORMAL
[2025-04-05 21:12] LABS: CREATININE 0.74 MG/DL (0.40-0.90); PRO BRAIN NATRIURETIC PEPTIDE 1603 PG/ML (0-450); TOTAL CARBON DIOXIDE 25.6 MMOL/L (24-32); eCRCL 37 ML/MIN; eGFR 74 ML/MIN
[2025-04-05 23:10] VITALS: BP 152/56; PULSE 69; RESP 14; TEMP 98.9; O2SAT 94
--- NOTE | 2025-04-05 23:40 | RADIOLOGY REPORT ---
CHEST RADIOGRAPH INDICATION: CP TECHNIQUE: Single frontal view of the chest was obtained COMPARISON: CT CT CHEST ABDOMEN PELVIS on DOS: 10/26/24 FINDINGS: Lines and Tubes: None Lungs: Clear Pleura: No effusion. No pneumothorax. Cardiomediastinal contours: Unremarkable Bones: Unremarkable IMPRESSION: 1. No acute disease.
--- NOTE | 2025-04-06 06:09 | ELECTROCARDIOGRAPH REPORT ---
[facility] Test Date: 2025-04-05 Test Time: 20:43:47 Pat Name: JIM SERRATO Department: EMERGENCY ROOM Room: Gender: F [employer]: : [id number] Requested By: SAHIL GROVER Order Number: [id number] Reading MD: Dr. RALPH Green Measurements Intervals [place] Rate: 70 P: 32 PA: 158 QRS: 6 QRSD: 91 T: 58 QT: 476 QTc: 514 Interpretive Statements Sinus rhythm Borderline repolarization abnormality Prolonged QT interval Electronically Signed On 04-07-2025 19:39:[address] RALPH Green Please click the below link to view image of tracing.
== END 2025-04-05 23:36 | disposition home or self-care (01) ==
LOC: ER 19:34
DX: R07.9 Chest pain, unspecified (principal); I10 Essential (primary) hypertension; Z90.710 Acquired absence of both cervix and uterus; Z88.8 Allergy status to other drugs, medicaments and biological substances; Z79.899 Other long term (current) drug therapy
CPT/HCPCS: 36415; 71045; 80048; 83880; 84484; 85008; 85025; 93005; 99285